=== PATIENT | female | born 1955 | race African-American/Black ===

== ENCOUNTER 2016-06-24 15:45 | Emergency (ER) | payer OTHER ==
[~2016-06-24 15:45] MED LIST: ABILIFY PO; ADVIL200 M1 PO; ALBUTEROL1.25 MG/3 INH; ALBUTEROL17 GM INH; ASPIRIN81 M1 PO; BAYER ASPIRIN325 M1 PO; CELEXA PO; CHOLESTEROL MED; COMPLETE ALLERG50 MG PO; CORTEF20 MG PO; COZAAR PO; DEPAKOTE PO; DOC-Q-LACE100 MG PO; FLEXERIL10 MG PO; HUMULIN N300 U/3 ML SUBQ; HUMULIN R100 U/ML SUBQ; HYDROCHLOROTHIA25 MG PO; HYDROCODON-ACE1 EAC9 PO; ISOSORBIDE MONO30 M1 PO; LANTUS100 U/ML SUBQ; LANTUS100 UNITS/ SUBQ; LIPITOR PO; LIPITOR20 MG PO; LISINOPRIL PO; LOPRESSOR PO; LORTAB 10-5001 EACH PO; LORTAB 5/500 TA1 TA1 PO; METFORMIN PO; MOTRIN400 MG PO; NAPROSYN-EC500 MG PO; NAPROXEN PO; NORVASC PO; NORVASC10 MG PO; PEPCID40 MG PO; PERCOCET10 PO; PREDNISONE5 M1 PO; SIMVASTATIN40 MG PO; SYMBICORT INH; TOPAMAX15 MG PO; TRAZODONE PO; TYLENOL #4 PO; VICODIN 5/1 TAB 5/50 PO; VICODIN 5/500 T1 TAB PO; ZESTRIL40 MG PO; ZITHROMAX1 G/PKT PO; [UNRECOGNIZED DRUG - OTHER] PO
[2016-06-24 15:46] LABS: BASOPHIL# 0.1 X10e3 (0-0.3); BASOPHIL% 0.8 % (0-2.5); EOSINOPHIL% 0.5 % (0.0-7.0); HEMATOCRIT 42.1 % (35.0-45.0); HEMOGLOBIN 14.4 gm/dL (12.0-16.0); LYMPHOCYTE# 1.4 X10e3 (1.0-3.5); LYMPHOCYTE% 18.8 % (17.0-45.0); MEAN CELL VOLUME 89.8 FL (83-96); MEAN CORPUSCULAR HEMOGLOBIN 30.7 PG (28-34); MEAN CORPUSCULAR HGB CONC 34.2 g/dL (30-36); MEAN PLATELET VOLUME 10.3 FL (6.5-11.5); MONOCYTE% 13.4 % (3.0-12.0); NEUTROPHIL# 5.1 X10e3 (1.5-7.1); NEUTROPHIL% 66.5 % (40-75); PLATELET COUNT 189 X10e3 (140-420); RED BLOOD COUNT 4.69 X10e (3.90-5.30); WHITE BLOOD COUNT 7.7 X10e3 (4.0-10.5)
[2016-06-24 15:52] LABS: DIFF IND NO
[2016-06-24 16:07] LABS: URINE SOURCE CLEAN CATCH
[2016-06-24 16:11] LABS: URINE APPEARANCE CLEAR; URINE BILIRUBIN NEG (NEG); URINE BLOOD 1+ (NEG); URINE COLOR YELLOW; URINE GLUCOSE NEG (NEG); URINE KETONE NEG (NEG); URINE LEUKOCYTE ESTERASE NEG (NEG); URINE NITRATE NEG (NEG); URINE PROTEIN 3+ (NEG); URINE SPECIFIC GRAVITY 1.023 (1.003-1.035); URINE UROBILINOGEN 0.2 MG/DL (NEG)
[2016-06-24 16:13] LABS: ALBUMIN SERUM 3.5 g/dL (3.5-5.0); BILIRUBIN, DIRECT 0.1 mg/dL (0.0-0.2); BILIRUBIN,INDIRECT 0.2 mg/dL (0.0-0.9); BILIRUBIN,TOTAL 0.3 mg/dL (0.2-2.0); CALCIUM SERUM 9.4 mg/dL (8.4-10.2); CREATININE SERUM 0.6 mg/dL (0.6-1.4); GLOM FILT RATE Estimated 112.4 mL/min (>60); POTASSIUM 3.3 mmol/L (3.5-5.1); PROTEIN TOTAL SERUM 7.9 g/dL (6.0-8.3)
[2016-06-24 16:14] LABS: URINE BACTERIA AUWI NEG (NEGATIVE); URINE SQUAMOUS EPITHELIAL CELL OCC /[HPF]; UWBCS1 AUWI 0-2 (0-5)
[2016-06-24 16:18] LABS: CULTURE INDICATED? NO
== END 2016-06-24 16:39 | disposition home or self-care (01) ==
LOC: CED 15:45
PROVIDERS: Emergency Medicine
DX: R11.2 Nausea with vomiting, unspecified (principal); R19.7 Diarrhea, unspecified; F17.200 Nicotine dependence, unspecified, uncomplicated; G43.909 Migraine, unspecified, not intractable, without status migrainosus; J45.909 Unspecified asthma, uncomplicated; E11.9 Type 2 diabetes mellitus without complications; E78.5 Hyperlipidemia, unspecified; I10 Essential (primary) hypertension; F31.9 Bipolar disorder, unspecified; Z90.710 Acquired absence of both cervix and uterus; Z91.040 Latex allergy status
CPT/HCPCS: 36415; 80048; 80076; 81003; 83690; 85025; 94640; 96361; 96374; 96375; 99284; J1200; J2270; J2765

== ENCOUNTER 2016-11-25 19:10 | Emergency (ER) | payer OTHER ==
[~2016-11-25] VITALS: Ht 160 cm; Wt 97.5 kg
--- NOTE | ~2016-11-25 | CR72 ---
[facility] A Service of [facility] & [facility] RADIOLOGY TEXT RESULTS PATIENT: LIZZETTE CHATMAN LOCATION: [facility] : 51 UNIT #: [id number] AGE: [address]: Jose Gama MD SEX: F ORDER DR: [id number] [facility] [address] [place], [place] [address] [id number] E MR#: [id number] Acc #: [id number] NAME: LIZZETTE CHATMAN : 1955 SEX: F STUDY DATE/TIME: 11/25/2016 20:44 UNIT: [facility] ROOM: STUDY DESCRIPTION: CR Chest Single View Portable Attending Physician: Jose Gama M.D. Ordering Physician: Jose Gama M.D. Primary Care Physician: Katelyn Robertson M.D. MEDICAL IMAGING REPORT This report is preliminary unless electronic signature is present EXAM Portable chest, 11/25/2016. HISTORY 61-year-old female with shortness of air and chest pain for 3 days. COMPARISON Chest, 10/15/2010. FINDINGS Frontal chest demonstrates clear lungs. No pleural effusion or pneumothorax. Heart size and mediastinum are within normal limits. Pulmonary vasculature unremarkable. IMPRESSION No acute cardiopulmonary findings. Dictated by... Moo Cordero M.D. THIS IS AN ELECTRONICALLY VERIFIED REPORT Moo Cordero M.D. at 11/28/2016 10:54 AM NIMISHA/rufino TD: 11/26/2016 23:45 JOB #: [id number] MEDICAL IMAGING REPORT Page 1 of 1 COPY
--- NOTE | ~2016-11-25 | EKG ---
PATIENT: LIZZETTE CHATMAN UNIT #: [id number] Ventricular Rate: 86 BPM Atrial Rate: 86 BPM P-R Interval: 118 ms QRS Duration: 84 ms Q-T Interval: 364 ms QTC Calculation(Bezet): 435 ms P [place]: 49 degrees Calculated R [place]: -20 degrees Calculated T [place]: -17 degrees Diagnosis Line: Normal sinus rhythm Diagnosis Line: Nonspecific T wave abnormality Diagnosis Line: Abnormal ECG Diagnosis Line: When compared with ECG of 15-OCT-2010 18:49, Diagnosis Line: No significant change was found Diagnosis Line: Confirmed by ISAIAH VENTURA MD ([id number]) on Diagnosis Line: 11/28/2016 4:42:01 PM INTERPRETING CHARLA DENISE
[2016-11-25 20:27] LABS: BASOPHIL# 0.1 X10e3 (0-0.3); BASOPHIL% 0.6 % (0-2.5); DIFF IND NO; EOSINOPHIL# 0.5 X10e3 (0-0.7); EOSINOPHIL% 5.9 % (0.0-7.0); HEMATOCRIT 38.7 % (35.0-45.0); HEMOGLOBIN 13.2 gm/dL (12.0-16.0); LYMPHOCYTE# 2.8 X10e3 (1.0-3.5); LYMPHOCYTE% 33.5 % (17.0-45.0); MEAN CELL VOLUME 90.7 FL (83-96); MEAN CORPUSCULAR HGB CONC 34.2 g/dL (30-36); MEAN PLATELET VOLUME 11.3 FL (6.5-11.5); MONOCYTE# 0.7 X10e3 (0-1.0); MONOCYTE% 8.5 % (3.0-12.0); NEUTROPHIL# 4.4 X10e3 (1.5-7.1); NEUTROPHIL% 51.5 % (40-75); PLATELET COUNT 217 X10e3 (140-420); RED BLOOD COUNT 4.27 X10e (3.90-5.30); RED CELL DISTRIBUTION WIDTH 12.5 % (11.0-15.5); WHITE BLOOD COUNT 8.5 X10e3 (4.0-10.5)
[2016-11-25 20:39] LABS: POC - CKMB 1.8 ng/mL (0.0-7.9); POC - TROPONIN <0.05 ng/mL (<=0.05)
[2016-11-25 20:56] LABS: ALBUMIN SERUM 2.9 g/dL (3.5-5.0); BILIRUBIN, DIRECT 0.1 mg/dL (0.0-0.2); BILIRUBIN,INDIRECT 0.4 mg/dL (0.0-0.9); BILIRUBIN,TOTAL 0.5 mg/dL (0.2-2.0); BUN/CREATININE RATIO 17.77; CALCIUM SERUM 8.8 mg/dL (8.4-10.2); CREATININE SERUM 0.9 mg/dL (0.6-1.4); GLOM FILT RATE Estimated 78.9 mL/min (>60); POTASSIUM 3.6 mmol/L (3.5-5.1); PROTEIN TOTAL SERUM 7.2 g/dL (6.0-8.3)
[2016-11-25 22:00] LABS: POC - CKMB 2.2 ng/mL (0.0-7.9); POC - TROPONIN <0.05 ng/mL (<=0.05)
== END 2016-11-25 22:23 | disposition home or self-care (01) ==
LOC: CED 19:10
PROVIDERS: Emergency Medicine
DX: J44.9 Chronic obstructive pulmonary disease, unspecified (principal); I10 Essential (primary) hypertension; E11.9 Type 2 diabetes mellitus without complications; F17.210 Nicotine dependence, cigarettes, uncomplicated; Z79.82 Long term (current) use of aspirin; Z79.4 Long term (current) use of insulin; Z79.899 Other long term (current) drug therapy; Z91.040 Latex allergy status
CPT/HCPCS: 36415; 71010; 80048; 80076; 82553; 83880; 84484; 85025; 93005; 94640; 96374; 99285; J2930